=== PATIENT | male | born 1995 | race Caucasian/White ===

== ENCOUNTER 2020-07-18 16:44 | Emergency (ER) | payer BC, OTHER ==
[2020-07-18] MEDS ORDERED: IBUPROFEN600 MG PO (18:57)
[2020-07-18] MEDS ORDERED: KEFLEX CAP 250250 MG PO (18:57)
== END 2020-07-18 19:25 | disposition home or self-care (01) ==
LOC: ER1 16:44
DX: S91.312A Laceration without foreign body, left foot, initial encounter (principal); S91.311A Laceration without foreign body, right foot, initial encounter; I10 Essential (primary) hypertension; Z90.89 Acquired absence of other organs; Z23 Encounter for immunization; W22.8XXA Striking against or struck by other objects, initial encounter
CPT/HCPCS: 12002; 73630; 90471; 90714; 99283

== ENCOUNTER 2021-04-24 18:10 | Emergency (ER) | payer BC ==
[~2021-04-24 18:10] MED LIST: IBUPROFEN600 MG PO; KEFLEX CAP 250250 MG PO
[2021-04-24 19:52] LABS: BUN/CREATININE RATIO 23 (0-10)
[2021-04-24 19:53] LABS: HEMOGLOBIN 17.4 gm/dl (14.0-17.5); RED BLOOD COUNT 5.69 M/UL (4.20-5.50); WHITE BLOOD COUNT 6.9 K/UL (4.5-11.0)
[2021-04-24] MEDS ORDERED: ZOFRAN ODT 4 MG4 MG PO (21:49)
[2021-04-24] MEDS ORDERED: IBUPROFEN600 MG PO (21:49)
[2021-04-24] MEDS ORDERED: BENTYL 20MG TAB20 MG PO (21:49)
== END 2021-04-24 22:00 | disposition home or self-care (01) ==
LOC: ER1 18:10
PROVIDERS: Student in an Organized Health Care Education/Training Program
DX: R10.811 Right upper quadrant abdominal tenderness (principal); R11.2 Nausea with vomiting, unspecified; R19.7 Diarrhea, unspecified; I10 Essential (primary) hypertension
CPT/HCPCS: 80053; 81001; 83690; 85025; 96372; 96374; 96375; 99284; J0500; J1885; J2405; Q9967